=== PATIENT | female | born 1955 | race Caucasian/White ===

== ENCOUNTER → 2023-05-31 10:55 | Outpatient (REF) | payer MEDICARE, SELFPAY | LOC: HWRAD 10:55 | PROVIDERS: ATTENDING PHYSICIAN Specialist; FAMILY PHYSICIAN Family Medicine | DX: M81.0 Age-related osteoporosis without current pathological fracture (principal); Z12.31 Encounter for screening mammogram for malignant neoplasm of breast | CPT/HCPCS: 77063; 77067; 77080 ==

== ENCOUNTER 2023-06-30 13:16 | Emergency (ER) | payer MEDICARE, SELFPAY ==
[2023-06-30 13:22] VITALS: BP 139/77
[2023-06-30 13:32] VITALS: BMI 24.1
--- NOTE | 2023-06-30 13:46 | ED.GENMED ---
History of Present Illness
General
Chief Complaint: Musculo-Skeletal Complaint
Time Seen by Provider: 06/30/23 13:40
Travel History
Have you had any contact with someone who has COVID-19?: No
Do you have any symptoms of coronavirus? Fever > 100 degrees, chills, cough, shortness of breath, sore throat, loss of taste or smell, muscle aches, or headache?: No
History of Present Illness
History of Present Illness:
68-year-old female presents after a minor fall. She reports pain to the left gluteal region radiating down the left thigh to the knee. She is able to ambulate but pain is worsening at night with some moderate swelling developing. Does not take
any anticoagulants. Has been taking Tylenol and tramadol without relief
Past History
Past History
ED Past Medical History: GERD, Hypercholesterolemia and Other (RA)
ED Past Surgical History: Cholecystectomy and Other
Social History
Tobacco: Non-smoker
Alcohol: None
Drug: None
Personal:
Living: with family
Employment: Employed
Family History
Family History: Other
Review of Systems
Review of Systems
Allergies reviewed?: Yes
All Other Systems: ROS reviewed and negative except as documented in HPI and ROS
Phy Exam
Physical Exam
Physical Exam:
GEN: Well appearing, NAD, WDWN
HEENT: Oral mucosa moist, no scleral icterus
Cardiac: Regular rate
Lung: No respiratory distress, no tachypnea
MSK: No gross deformity or injuries. Left hip range of motion unrestricted without pain, left knee range of motion unrestricted without pain. Mild tenderness to the distal left thigh
Skin: Good color, no pallor or jaundice, no rashes
Neuro: AO x3, moves all extremities freely
Psych: Calm, cooperative
Course
Orders/Labs/Results
Orders:
Orders
06/30/23 13:34
CR Femur - Left Min 2 Vw Urgent
Comment:
Reason For Exam: injury/pain
CR Knee - Left 4 Or More View* Urgent
Comment:
Reason For Exam: injury/pain
Vital Signs
Initial and Last Documented VS:
Initial Vital Signs
Temp Pulse Resp BP Pulse Ox
98.2 F 84 18 139/77 98
06/30/23 13:22 06/30/23 13:22 06/30/23 13:22 06/30/23 13:22 06/30/23 13:22
Last Documented Vital Signs
Temp Pulse Resp BP Pulse Ox
98.2 F 84 18 139/77 98
06/30/23 13:22 06/30/23 13:22 06/30/23 13:22 06/30/23 13:22 06/30/23 13:22
MDM/Problems Addressed
MDM/Problems Addressed:
X-rays of the left thigh and left knee independently interpreted by me are negative for acute osseous abnormalities, discussed supportive care
*Critical Care Note
Total Time (30-74mins, 75-104mins- exclusive of procedures): Not Applicable
ED Attending Note
-
Portions of this chart may have been created with voice recognition software.� Occasional wrong word or��sound alike� substitutions may have occurred due to the inherent limitations of voice recognition software.
Discharge Plan
Departure
Patient Disposition: Home (Routine Discharge)
Date of Disposition: 06/30/23
Time of Disposition: 14:01
Patient with high blood pressure during this ER visit?: No
Discharge Problem:
Contusion of left thigh
Instructions: Knee Sprain ED
Prescriptions:
New
diclofenac sodium 75 mg tablet,delayed release (DR/EC)
75 mg PO BID 10 Days Qty: 20 0RF
No Action
hydrochlorothiazide 50 MG tablet
50 mg PO DAILY
hpykfmdbkx-hcythaqbgzvhz-apdm 1 TAB tablet
1 tab PO Q6HPRN PRN (Reason: pain)
simvastatin 40 MG tablet
40 mg PO HS
omeprazole magnesium [Prilosec OTC] 20 MG tablet,delayed release (DR/EC)
20 mg PO PRN PRN (Reason: reflux)
cholecalciferol (vitamin D3) [Vitamin D3] 400 UNITS tablet
125 mg PO DAILY
Vitamin De3
3 cap PO DAILY
alendronate 70 MG tablet
70 mg PO WEEKLY
oxycodone 5 MG tablet
5 mg PO Q4HPRN PRN (Reason: breakthrough/severe pain) Qty: 7 0RF
oxycodone-acetaminophen [Endocet] 5-325 mg tablet
1 tab PO TID PRN (Reason: pain) Qty: 10 0RF
Referrals:
Dariusz Nava MD [Active] -
Interventions
Interventions:
*Risk Screen - Suicide Last Done: 06/30/23 13:26
*General Assessment Last Done: 06/30/23 13:26
*Neglect/Abuse Screening Last Done: 06/30/23 13:26
ED- Fall Risk Assessment Last Done: 06/30/23 13:32
*ED COVID-19 Vaccine History Last Done: 06/30/23 13:32
*Nursing Disposition Last Done: 06/30/23 14:11
ED-Musculoskeletal Assessment Last Done: 06/30/23 13:32
Discharge Date and Time
Discharge Date/Time: 06/30/23 14:12
--- NOTE | 2023-06-30 14:11 | EDRN ---
Discharge instructions given to patient by Myles Galvez PA-C.
== END 2023-06-30 14:12 | disposition home or self-care (01) ==
LOC: EMR 13:16
PROVIDERS: EMERGENCY PHYSICIAN Student in an Organized Health Care Education/Training Program; FAMILY PHYSICIAN Family Medicine
DX: S70.12XA Contusion of left thigh, initial encounter (principal); W19.XXXA Unspecified fall, initial encounter
CPT/HCPCS: 99283; 73552; 73564

== ENCOUNTER → 2025-03-19 11:01 | Outpatient (REF) | payer MEDICARE, SELFPAY | LOC: HWEVLT 11:01 | PROVIDERS: ATTENDING PHYSICIAN Radiology Diagnostic Radiology | DX: I83.893 Varicose veins of bilateral lower extremities with other complications (principal) | CPT/HCPCS: 93970 ==